=== PATIENT | female | born 1965 | race Caucasian/White ===

== ENCOUNTER 2025-03-17 10:30 | Outpatient (AMB) | payer OTHER, SELFPAY ==
--- OUTSIDE RECORDS SUMMARY | 2015-12-25 23:00 | XMS_ITS | Encounter Summary ---
Author Organization [facility] Address [address] [facility] [address] [place] [address] Phone Care Team Providers Care Hall Monitor Name Role Phone Umberto Goodwin MD Primary Care Provider + Reason for Visit * MRI/CAT Scan - Closed Specialty Diagnoses / Procedures Referred By Curt olivas Referred To Contact Procedures MRI Brain Outside (No Interpretation) Axel Ross MD [address] [place] [address] [address] [address] Phone: tel: fax: mailto:[email or web address] Referral ID Status Reason Start Date Expiration Date Visits Re quested Visits Authorized [id number] Closed 02/01/2016 01/31/2017 1 1 Encounter Details Date Type Department Care Team (Late st Contact Info) Description 12/26/2015 Hospital Encounter [facility] General Imaging [address] [place] [address] Axel Ross MD [address] [place] [address] [address] [address] [email or web address] Social History Tobacco Use Types Packs/Day Years Used Date Smoking Tobacco: Never Assessed Child or Family Care Answer Date Record ed Do you have problems with on e of the following making it difficult for you to work, study, or receive health care? No 08/15/2024 Education Answer Date Recorded Are you interested in help w ith more adult education (for example, completing high school, GED, job training, learning the [place] language, technical skills, or developing parenting skills)? No 08/15/2024 Are you concerned about learning? Not on file 08/15/2024 No 08/15/2024 Yes 08/15/2024 Food Answer Date Recorded Within the past 6 months we worried whether our food would run out before we got money to buy more. Never True 08/15/2024 Within the past 6 months the food we bought just didn't last and we didn't have enough money to get more. Never True Residential Stability Answer Date Recor ded What is your housing situation today? I have vivi sing 08/15/2024 How many times have you move d in the past 12 months? Zero (I did not move) 08/15/2024 Paying for Meds Answer Date Recorded Do you have trouble paying for medicines? No 08/15/2024 Paying Utility Bills Answer Date Record ed Do you have trouble paying your heating or elect ricity bill? No 08/15/2024 Transportation Answer Date Recorded Has the lack of transportati on kept you from medical appointments or from getting medications? No 08/15/2024 Digital Access Answer Date Recorded No 08/15/2024 Yes 08/15/2024 Do you have reliable internet access at home? Ye s 08/15/2024 Do you have a device (e.g., phone, tablet, computer) with a working camera? Yes 08/15/2024 Comments Unknown Sex and Gender Information Value Date Recorded Sex Assigned at Female 05/01/2022 3:51 PM EST Legal Sex Female 9:20 AM EST Gender Identity Female 05/01/2022 3:51 PM EST Sexual Orientation Straight 05/01/2022 3: 51 PM EST documented as of this encounter Plan of Treatment Not on file documented as of this encounter Procedures Procedure Name Priority Date/Time Associated Diagnosis Comments MRI BRAIN OUTSIDE (NO INTERPRETATION) Routine 12/26/2015 12:00 AM EDT documented in this encounter Results * MRI Brain Outside (No Interpretation) (12/26/2015 12:00 AM EDT) Narrative [facility] - 02/01/2016 3:16 PM EDT This study is for PACS storage only and not for interpretation. Procedure Note SYSTEMGENERATED, DOCUMENTATION - 02/01/2016 This study is for PACS storage only and not for interpretation. Axel Ross MD IMG OUTSIDE IMAGING W/OUT INT ERPRETATION Final Result [facility] documented in this encounter Visit Diagnoses Not on filedocumented in this encounter Care Teams Hall Monitor Relationship Specialty Start Date End Date Umberto Goodwin MD [address] [place] [address] PCP - General Internal Medicine 04/06/15 documented as of this encounter Additional Source Comments The information contained in this document represents components of the legal health record. It is not the complete legal health record.[facility]
--- NOTE | 2025-03-17 10:39 | MHC.PC.OV ---
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 Allergies amoxicillin Adverse Reaction (Severe, Verified 03/17/25 10:40) yeast infection Penicillins Adverse Reaction (Severe, Verified 03/17/25 10:40) yeast infection nuts Allergy (Unknown, Uncoded 03/17/25 10:29) tongue/mouth swelling Tobacco use date assessed: 03/17/25 Dental Screening Dental Screen Date: 03/17/25 Did you have a dental visit in the last 12 months?: Yes Did you have a dental problem in the last 6 months where you did not have access to dental care?: No Was dental information given to patient?: Patient has dentist HPI 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 She is transferring from [facility]. She has a significant past medical history family history of breast cancer, osteopenia and a meningioma CV: Blood pressure today in the office is 108/76. Neuro: [facility], Dr. Ross, is following her meningioma upper right temporal lobe until it grows. Derm: follows with [facility] for routine skin checks Tire Builder Operator: Dr. Mueller, up-to-date Mammo: Up-to-date, follows with [facility] for mammograms and MRIs Colonoscopy: due in 2028- it was 10 year plan Bone density: 2024- osteopenia She eats healthy, exercises regularly and has started weightlifting. 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 1. Little interest or pleasure in doing things: not at all 2. Feeling down, depressed, or hopeless: not at all 3. Trouble falling or staying asleep, or sleeping too much: several days 4. Feeling tired or having little energy: not at all 5. Poor appetite or overeating: not at all 6. Feeling bad about yourself - or that you are a failure or have let yourself or your family down: not at all 7. Trouble concentrating on things, such as reading the newspaper or watching television: not at all 8. Moving or speaking so slowly that other people could have noticed. Or the opposite - being so fidgety or restless that you have been moving around a lot more than usual: not at all 9. Thoughts that you would be better off or of hurting yourself in some way: not at all Total score: 1 Depression Screening Interpretation: Negative Depression Screening Done: Yes 07435 - PHQ-9 Billing: Yes Source: Developed by Drs. Scar Elmore, Trina Blankenship, Yefri Kwok and colleagues, with an educational marisa from [employer]. Thrive Questionnaire Date Thrive assessed: 03/11/25 I am a: Patient What is your living situation today?: I have a steady place to live Within the past 12 months, did the food you bought not last and you didn't have the money to get more?: Never true Within the past 12 months, did you worry whether your food would run out before you got money to buy more?: Never true Do you have trouble paying for medicines?: No Do you have trouble getting transportation to medical appointments?: No Do you have trouble paying your heating and electricity bill?: No Do you have trouble taking care of your child, family member or friend?: No Do you have trouble with day-to-day activities such as bathing, preparing meals, shopping, managing finances, etc.?: No Are you currently unemployed and looking for a job?: No Are you interested in more education?: No Please select the resources that you would like help with: None Currently or been in a relationship where the following occur: No concerns reported THRIVE Score: 0 Physical exam (Primary Care) Vital Signs: Last Vital Signs Temp 97.9 F 03/17/25 10:43 Pulse 88 03/17/25 10:43 Resp 14 03/17/25 10:43 BP 108/76 03/17/25 10:43 Pulse Ox 97 03/17/25 10:43 Oxygen Delivery Method Room Air 03/17/25 10:43 BMI result Body Mass Index 21.7 Tobacco/Smoking Status: Tobacco use Status Tobacco use date assessed 03/17/25 03/17/25 10:47 Patient Tobacco Use Status Never used Tobacco 03/17/25 10:47 e-Cigarette/Vaping Use Never Used 03/17/25 10:47 PHQ-9: PHQ-9 Score PHQ-9: Total score 1 03/17/25 10:47 Depression Screening Interpretation: Negative Thrive Assessment: Date of Thrive Assessment Date Thrive assessed 03/11/25 03/17/25 10:47 Currently or been in a relationship where the following occur: No concerns reported Const Orientation/consciousness: patient oriented x3 HENMT Ears: hearing grossly normal bilaterally General nose exam: No nasal polyps present Face and sinus: Yes sinuses nontender Mouth: Normal oral and palatal mucosa present Eyes Pupils: Equal, round and reactive pupils present EOM: EOMs intact bilaterally Neck Neck: Yes full ROM and Yes no lymphadenopathy Thyroid: Thyroid normal Lymphatic: no lymphadenopathy noted Chest Chest palpation & inspection: normal inspection of the chest Resp Auscultation: clear to auscultation bilaterally Cardio Rate: regular rate Rhythm: regular rhythm Heart sounds: S1 normal heart sound present and S2 normal heart sound present Peripheral pulses: Peripheral pulses 2+ throughout GI Other: Soft, nontender Inspection: Yes normal to inspection Palpation (GI): Soft to palpation and Other GI palpation findings present (nontender, no cva tenderness) Auscultation: normoactive bowel sounds Rectal Exam - Female: deferred General: Yes no CVA tenderness Back/Spine/Pelvis Other: Nontender Back: no CVA tenderness Skin General skin exam: no rashes or lesions noted Neuro General: patient oriented x3, gait normal and no focal motor deficits Cranial nerves: Yes Equal, round and reactive pupils present Motor exam (neuro): 5/5 motor strength present throughout Sensory Exam: double simultaneous stimulation for sensation normal Coordination: [id number] test normal and Romberg test negative Extrem General: Yes normal to inspection and Yes full ROM Psych Affect: normal affect Attitude: cooperative Thought process: Normal thought process present Thought content: Normal thought content present Insight: Good insight present (Psych) Judgement: Good judgement present (Psych) Coding Level of Care Code New Pt Prev Care 40-64y(69428) Diagnoses Routine general health check-up of defined subpopulation Z00.8 Osteopenia M85.80 At high risk for breast cancer Z91.89 Additional Codes PHQ-9 - 48730 - PHQ-9 Billing: Yes ([id number]) Assessment & Plan Assessment & Plan (1) Routine general health check-up of defined subpopulation: Code(s): Z00.8 - Encounter for other general examination Plan: hm reviewed vaccines reviewed/recommended. will go to pharmacy labs ordered (2) Osteopenia: Code(s): M85.80 - Other specified disorders of bone density and structure, unspecified site Category: Medical Plan: We will check vitamin-D Encouraged her to continue with weightlifting (3) At high risk for breast cancer: Code(s): Z91.89 - Other specified personal risk factors, not elsewhere classified Category: Medical Plan: Continue follow up with breast center and OBGYN Orders: Orders Complete Blood Count Auto Diff Today M85.80 - Other specified disorders of bone density and structure, unspecified site, Z80.3 - Family history of malignant neoplasm of breast, Z91.89 - Other specified personal risk factors, not elsewhere classified Comprehensive [place]. Panel Fast Today M85.80 - Other specified disorders of bone density and structure, unspecified site, Z80.3 - Family history of malignant neoplasm of breast, Z91.89 - Other specified personal risk factors, not elsewhere classified Lipid Panel Today M85.80 - Other specified disorders of bone density and structure, unspecified site, Z80.3 - Family history of malignant neoplasm of breast, Z91.89 - Other specified personal risk factors, not elsewhere classified TSH reflex Free T4 Today M85.80 - Other specified disorders of bone density and structure, unspecified site, Z80.3 - Family history of malignant neoplasm of breast, Z91.89 - Other specified personal risk factors, not elsewhere classified UA CC w/rflx Micro + Cult Today M85.80 - Other specified disorders of bone density and structure, unspecified site, R30.0 - Dysuria, Z80.3 - Family history of malignant neoplasm of breast, Z91.89 - Other specified personal risk factors, not elsewhere classified Magnesium Today M85.80 - Other specified disorders of bone density and structure, unspecified site, Z80.3 - Family history of malignant neoplasm of breast, Z91.89 - Other specified personal risk factors, not elsewhere classified Vitamin B12 and Folate Today M85.80 - Other specified disorders of bone density and structure, unspecified site, Z80.3 - Family history of malignant neoplasm of breast, Z91.89 - Other specified personal risk factors, not elsewhere classified Vitamin D 25-OH Total Today M85.80 - Other specified disorders of bone density and structure, unspecified site, Z80.3 - Family history of malignant neoplasm of breast, Z91.89 - Other specified personal risk factors, not elsewhere classified Patient Instructions: tdap shingles vaccine
[2025-03-17 10:43] VITALS: BP 108/76; PULSE 88; RESP 14; TEMP 36.6; O2SAT 97; BMI 21.7
--- OUTSIDE RECORDS SUMMARY | 2025-03-17 12:58 | XMS_ITS | Encounter Summary ---
Author Organization [facility] Address [address] [place] [address] Phone Care Team Providers Care Line Tester Name Role Phone Umberto Goodwin MD Primary Care Provider + Encounter Details Date Type Department Care Team ([facility] st Contact Info) Description 12/31/2016 Procedure Pass [facility] Imaging [address] [place] [address] Social History Tobacco Use Types Packs/Day Years Used Date Smoking Tobacco: Never Assessed Comments Unknown Sex and Gender Information Value Date Recorded Sex Assigned at Female 05/01/2022 3:51 PM EST Legal Sex Female 9:20 AM EST Gender Identity Female 05/01/2022 3:51 PM EST Sexual Orientation Straight 05/01/2022 3: 51 PM EST documented as of this encounter Plan of Treatment Not on file documented as of this encounter Visit Diagnoses Not on filedocumented in this encounter Care Teams Line Tester Relationship Specialty Start Date End Date Umberto Goodwin MD [address] [place] [address] PCP - General Internal Medicine 04/06/15 documented as of this encounter Additional Source Comments The information contained in this document represents components of the legal health record. It is not the complete legal health record.[facility]
--- OUTSIDE RECORDS SUMMARY | 2025-03-17 12:58 | XMS_ITS | Clinical Summary ---
Author Organization [facility] Address [address] [place] [address] Phone Care Team Providers Care Die Filer Name Role Phone Umberto Goodwin MD Primary Care Provider + Social History Tobacco Use Types Packs/Day Years [...] high school, GED, job training, learning the O[place]i language, technical skills, or developing parenting skills)? [...] your housing situation today? I have vivi lagos 08/15/2024 How many times have you move [...] Orientation Straight 05/01/2022 3: 51 PM EST Last Filed Vital Signs Vital Sign Reading Time Taken Comments Blood Pressure 116/77 08/14/2022 12:50 PM EDT Pulse 99 08/14/2022 12:50 PM EDT Temperature 37.2 C (99 F) 08/14/2022 12:50 PM EDT Respiratory Rate 16 08/14/2022 12:50 PM EDT Oxygen Saturation 97% 08/14/2022 12:50 PM EDT Inhaled Oxygen Concentration - - Weight 53.1 kg (117 lb) 08/14/2022 12:50 PM EDT Height - - Body Mass Index - - Plan of Treatment Health Maintenance Due Date Last Done Comments LIPID PANEL 1965 DEPRESSION SCREENING 1977 SMOKING Hx and SMOKELESS TOBACCO SCREENING 1978 HEPATITIS C SCREENING 06/18/1983 HIV ONE-TIME SCREENING (18-6 5 YEARS) 06/18/1983 PAP SMEAR 1986 MAMMOGRAM 2005 COLOGUARD 2010 COLONOSCOPY 2010 COLORECTAL CANCER SCREENING 2010 FIT TEST 2010 FOBT 2010 SIGMOIDOSCOPY 2010 VIRTUAL COLONOSCOPY 2010 PNEUMOCOCCAL VACCINES (50+ years) (1 of 1 - PCV) 06/18/2015 ZOSTER VACCINES (1 of 2) 06/18/2015 INFLUENZA VACCINE (#1) 2024 01/27/2018 COVID-19 VACCINE (1 - 2024-2 6 season) 2024 Adult Td,Tdap Booster 10/08/2028 10/08/2018 , 10/08/2018 RSV VACCINE (1 - 1-dose 75+ series) 2040 HEPATITIS A VACCINES Aged Out No long er eligible based on patient's age to complete this topic HIB VACCINES Aged Out No longer eligi ble based on patient's age to complete this topic MENINGOCOCCAL VACCINES (ACWY) Aged Out No longer eligible based on patient's age to complete this topic MENINGOCOCCAL VACCINES (B) Aged Out N o longer eligible based on patient's age to complete this topic Medical Devices Not on file Insurance S S S S S S S S S Care Teams Die Filer Relationship Specialty Start Date End Date Umberto Goodwin MD [address] [address] PCP - General Internal Medicine 04/06/15 Additional Source Comments The information contained in this document represents components of the legal health record. It is not the complete legal health record.[facility]
--- OUTSIDE RECORDS SUMMARY | 2025-03-17 12:58 | XMS_ITS | Encounter Summary ---
Author Organization [facility] Address [address] [place] [address] Phone Care Team Providers Care Sr Technical Sales Consultant Name Role Phone Umberto Goowdin MD Primary Care Provider + Encounter Details Date Type Department Care Team ([facility] st Contact Info) Description 01/02/2018 Procedure Pass [facility] Imaging [address] [place] [address] Social History Tobacco Use Types Packs/Day Years [...] on filedocumented in this encounter Care Teams Sr Technical Sales Consultant Relationship Specialty Start Date End Date Umberto Goodwin MD [address] [place] [address] PCP - General Internal Medicine 04/06/15 documented as of this encounter Additional Source Comments The information contained in this document represents components of the legal health record. It is not the complete legal health record.[facility]
--- OUTSIDE RECORDS SUMMARY | 2025-03-17 12:58 | XMS_ITS ---
Author Name [facility] Organization Unknown Results Test Name/Text Value Interpretation Date Range Source LAB AP MICROSCOPIC DESCRIPTION Sections reveal a mucosal nodule composed chiefly of dense fibrous connective tissue. The surface epithelium is hyperplastic and hyperkeratotic. Heat coagulation tissue distortion consistent with laser is observed. 02/09/2025 [facility]
--- OUTSIDE RECORDS SUMMARY | 2025-03-17 12:58 | XMS_ITS | Encounter Summary ---
Author Organization [facility] Address [address] [facility] [address] [place] [address] Phone Care Team Providers Care Checker Name Role Phone Umberto Goodwin MD Primary Care Provider + Encounter Details Date Type Department Care Team ([facility] st Contact Info) Description 02/19/2021 Transcribe Orders [facility] [address] [place] [address] Axel Ross MD [address] [place] [address] [address] [place] [address] [email or web address] Social History Tobacco Use Types Packs/Day Years [...] on filedocumented in this encounter Care Teams Checker Relationship Specialty Start Date End Date Umberto Goodwin MD [address] [address] PCP - General Internal Medicine 04/06/15 documented as of this encounter Additional Source Comments The information contained in this document represents components of the legal health record. It is not the complete legal health record.[facility]
--- OUTSIDE RECORDS SUMMARY | 2025-03-17 12:58 | XMS_ITS | Encounter Summary ---
Author Organization [facility] Address [address] [place] [address] Phone Care Team Providers Care Canoe Maker Name Role Phone Umberto Goodwin MD Primary Care Provider + Encounter Details Date Type Department Care Team ([facility] st Contact Info) Description 12/30/2018 Procedure Pass [facility] Imaging [address] [place] [address] Social History Tobacco Use Types Packs/Day Years [...] on filedocumented in this encounter Care Teams Canoe Maker Relationship Specialty Start Date End Date Umberto Goodwin MD [address] [place] [address] PCP - General Internal Medicine 04/06/15 documented as of this encounter Additional Source Comments The information contained in this document represents components of the legal health record. It is not the complete legal health record.[facility]
--- OUTSIDE RECORDS SUMMARY | 2025-03-17 12:58 | XMS_ITS | Data Portability ---
Author Organization [place] - [facility] Former[facility], Allergy Address [address] [address] Care Team Providers Care [employer] Duty Manager Name Role Phone EGRTRUDIS GUERRERO Primary Care Provider Assessment Encounter Date Assessment Date Assessment LastModified by Organization Details LastModified Time 02/11/2024 02/11/2024 58-year-old female presents for allergy follow-up. She has had significant improvement in her allergy symptoms since starting immunotherapy in 2015. We discussed discontinuing immunotherapy which patient would like to proceed with. She will follow-up in 8 months for reevaluation. If symptoms recur, we may consider allergy testing. Patient agrees with the plan and all questions were answered. [email or web address] Not available 02/11/2024 11:08:38 10/08/2024 10/08/2024 59-year-old female presents for allergy follow-up. She has had significant improvement in her allergy symptoms since starting immunotherapy in 2015. She may take Mary Ellen-D as needed for allergy flare up. She may follow up as needed. If symptoms recur or worsen, we may consider repeat allergy testing. Patient agrees with the plan and all questions were answered. Patient with right sided lymphadenopathy. Exam today demonstrates small pea-sized freely movable nontender lymph node under the angle of the right mandible. We will continue to observe. She will follow-up if the lymph node increases in size, becomes painful, or if she has any unexplained weight loss, fevers, night sweats or chills. [email or web address] Not available 10/08/2024 11:01:24 Plan of Treatment Reminders Order Date Submit Date Provider Last Modified By Organization Details Last Modified Time Details Appointments None record ed. Lab None record ed. Referral None record ed. Procedures None record ed. Surgeries None record ed. Imaging None record ed. Medication Orders None record ed. Patient TargetsNo targets recorded. Patient InstructionsNo instructions recorded. Reason for Referral None Reported. Problems Name Problem SNOMED Code Status Onset Date Resolution Date Notes Provider Name and Address Organization Details Recorded Time Headache 06603783 Active 2014 Headache; Note: Date Diagnosed: 03/16/2015 3:13 PM (R51) Not Available [facility] 4 02:49:23 Chronic maxillary sinusitis 43908231 Active 2014 Chronic maxillary sinusitis; Note: Date Diagnosed: 03/16/2015 3:12 PM (J32.0) Not Available [facility] 4 02:49:23 Chronic ethmoidal sinusitis 08597883 Active 2014 Chronic ethmoidal sinusitis; Note: Date Diagnosed: 03/16/2015 3:12 PM (J32.2) Not Available [facility] 4 02:49:27 Allergic rhinitis 29405068 Active 2015 Allergic Rhinitis; Note: Date Diagnosed: 09/01/2015 4:48 PM (477.9) Perennia l allergic rhinitis; Note: Date Diagnosed: 07/11/2015 3:26 PM (J30.89) ; Start Date : 07/11/2015 Not Available [facility] 4 02:49:26 Allergic rhinitis caused by pollen 32976609 Active 2022 Allergic rhinitis due to pollen; Note: Date Diagnosed: 11/05/2022 6:45 PM (J30.1) Allergic rhinitis due to pollen; Note: Date Diagnosed: 04/04/2022 11:38 AM (J30.1) ; Start Date : 04/04/2022 Allergic rhinitis due to pollen; Note: Date Diagnosed: 09/25/2021 12:05 PM (J30.1) ; Start Date : 09/25/2021 Allergic rhinitis due to pollen; Note: Date Diagnosed: 02/06/2021 10:25 AM (J30.1) ; Start Date : 02/06/2021 Allergic rhinitis due to pollen; Note: Date Diagnosed: 02/02/2019 9:40 AM (J30.1) ; Start Date : 02/02/2019 Allergic rhinitis due to pollen; Note: Date Diagnosed: 01/27/2018 9:17 AM (J30.1) ; Start Date : 01/27/2018 Allergic rhinitis due to pollen; Note: Date Diagnosed: 02/27/2016 4:19 PM (J30.1) ; Start Date : 02/27/2016 Not Available [facility] 4 02:49:27 Acute pharyngit is 578267576 Active 2022 Acute pharyngiti s, unspecifie d; Note: Date Diagnosed: 11/05/2022 11:19 AM (J02.9) Not Available [facility] 4 02:49:26 Lymphaden opathy 44054030 Active 2024 CLEO SERRA PA-C [address] [place] [address], [place], [address] , [facility] - [facility] 5 10:59:50 Problem Notes None recorded. Medical Equipment None Reported. Allergies No known drug allergies Medications Name Sig Start Date Stop Date Status Note LastModified by Organization Details LastModified Time amoxicill in 500 mg capsule TAKE 1 CAPSULE BY MOUTH EVERY 6 HOURS UNTIL FINISHED 10/08 completed Not Available Not Available Not Available desonide 0.05 % topical cream APPLY SPARINGL Y TWICE DAILY. active Not Available Not Available No t Available clindamyc in HCl 300 mg capsule 1 capsule by mouth 10/08 completed Medicati on ID: [id number] D uration Value: 7 Prescri bed By Name: Fab Zeng nd Name: clindamy phylicia HCl Send Method: E-Prescr ibed Sub s Allowed: subs OK Medic ationGen ericName : clindamy phylicia HCl Not Available Not Available Not Available ibuprofen 800 mg tablet TAKE 1 TABLET BY MOUTH EVERY 8 HOURS 10/08 completed Not Available Not Available Not Available Lidocaine Viscous 2 % mucosal solution GARGLE IN MOUTH WITH 10 ML EVERY 3-4 HOURS GARGLE, THEN CAN SPIT OUT OR SWALLOW 10/08 completed Not Available Not Available Not Available spironola ctone 100 mg tablet TAKE 1 TABLET BY MOUTH EVERY DAY IN THE MORNING active Not Available Not Available No t Available rizatript an 10 mg tablet PLEASE SEE ATTACHED FOR DETAILED DIRECTIO NS 10/08 completed Not Available Not Available Not Available Diflucan 150 mg tablet 02/06 completed Medicati on ID: [id number] P rescribe d By Name: BRANDON Davis nd Name: Ap Send Method: E-Prescr ibed Sub s Allowed: subs OK Speci al Instruct ion: take one tab po once Med icationG enericNa me: Diflucan Not Available Not Available Not Available tretinoin 0.05 % topical cream APPLY A PEA SIZED AMOUNT AT BEDTIME TOLERATE D FOR ACNE active Not Available Not Available No t Available clindamyc in 1 %-benzoyl peroxide 5 % topical gel APPLY EVERY MORNING TO FACE FOR ACNE. active Not Available Not Available No t Available amoxicill in 500 mg tablet TAKE 2 TO START, THEN TAKE 1 TABLET 3 TIMES A DAY UNTIL FINISHED 10/08 completed Not Available Not Available Not Available alprazola m 0.5 mg tablet TAKE 1 TABLET BY MOUTH NIGHT BEFORE PROCEDUR E, THEN 2 TABS 1 HOUR PRE-OP 10/08 completed Not Available Not Available Not Available rizatript an 10 mg disintegr ating tablet TAKE 1 TAB AT ONSET OF HEADACHE . MAY REPEAT IN 2HRS NEEDED (MAX 3TABS/24 HRS) active Not Available Not Available No t Available doxycycli ne monohydra te 100 mg capsule TAKE 1 CAPSULE BY MOUTH TWICE A DAY WITH FOOD UNTIL BETTER 10/08 completed Not Available Not Available Not Available pantopraz ole 40 mg tablet,de layed release TAKE 1 TABLET BY MOUTH EVERY DAY 10/08 completed Not Available Not Available Not Available Mary Ellen-D 12 Hour 60 mg-120 mg tablet,ex tended release 02/06 completed Medicati on ID: [id number] B rand Name: Mary Ellen- D 12 Hour Sen d Method: E-Prescr ibed Sub s Allowed: subs OK Medic ationGen ericName : Mary Ellen- D 12 Hour Not Available Not Available Not Available azelastin e 137 mcg (0.1 %) nasal spray 2 spray into both nostrils 02/06 completed Medicati on ID: [id number] P rescribe d By Name: BRANDON Davis nd Name: azelasti ne Send Method: E-Prescr ibed Sub s Allowed: subs OK Medic ationGen ericName : azelasti ne Not Available Not Available Not Available epinephri ne 0.3 mg/0.3 mL injection , auto-inje ctor INJECT 1 PEN INJECTOR INTRAMUS CULARLY SINGLE DOSE active Not Available Not Available No t Available methylpre dnisolone 4 mg tablets in a dose pack TAKE 6 TABLETS ON DAY 1 DIRECTED ON PACKAGE AND DECREASE BY 1 TAB EACH DAY FOR A TOTAL OF 6 DAYS 10/08 completed Not Available Not Available Not Available albuterol sulfate HFA 90 mcg/actua tion aerosol inhaler active Medicati on ID: [id number] B rand Name: albutero l sulfate Send Method: E-Prescr ibed Sub s Allowed: subs OK Medic ationGen ericName : albutero l sulfate Not Available Not Available Not Available fluticaso ne propionat e 50 mcg/actua tion nasal spray,brett pension active Medicati on ID: [id number] B rand Name: fluticas one propiona te Send Method: E-Prescr ibed Sub s Allowed: subs OK Medic ationGen ericName : fluticas one propiona te Not Available Not Available Not Available dicyclomi ne 10 mg capsule TAKE 1 CAPSULE BY MOUTH THREE TIMES A DAY NEEDED FOR ABDOMINA L PAIN active Not Available Not Available No t Available ipratropi um bromide 21 mcg (0.03 %) nasal spray TAKE 2 SPRAYS IN EACH NOSTRIL 2 TIMES PER DAY FOR 14 DAYS active Not Available Not Available No t Available Tri-Sprin dyllan (28) 0.18 mg(7)/0.2 15 mg(7)/0.2 5 mg(7)-0.0 35 mg tablet 02/06 completed Medicati on ID: [id number] D uration Value: 84 Brand Name: Tri-Spri ntec (28) Sen d Method: E-Prescr ibed Sub s Allowed: subs OK Medic ationGen ericName : Tri-Spri ntec (28) Not Available Not Available Not Available chlorhexi dine gluconate 0.12 % mouthwash RINSE AND SPIT WITH 1/2 CAPFUL TWICE A DAY active Not Available Not Available No t Available bimatopro st 0.03 % drops with applicato r, eyelash base PLEASE SEE ATTACHED FOR DETAILED DIRECTIO NS active Not Available Not Available No t Available butalbita l-acetami nophen-ca ffeine 50 mg-300 mg-40 mg capsule 02/06 completed Medicati on ID: [id number] D uration Value: 6 Brand Name: butalbit al-aceta minophen -caff Se nd Method: E-Prescr ibed Sub s Allowed: subs OK Medic ationGen ericName : butalbit al-aceta minophen -caff Not Available Not Available Not Available Vitals Date Recorded Body height Body mass index (BMI) Body weight Provider Name and Address Organization Details Last Updated DateTime 10/08/2024 157.48 cm 20.7 kg/m2 30930.94 g Celina Briones [facility] 10/08/2024 10:25:26 Date Recorded Body height Body mass index (BMI) Body weight Provider Name and Address Organization Details Last Updated DateTime 02/11/2024 157.48 cm 20.7 kg/m2 74314.94 g Tatyana Cintron [facility] 02/11/2024 10:49:23 Social History None recorded. Functional Status None recorded. Mental Status None recorded. Family History Nothing Reported. Medical History No medical history recorded. Gynecological HistoryNo gynecological history recorded. Obstetrics History GPAL:G 0 P 0 0 0 0 Past Encounters Encounter ID Performer Location Encounter Start Date Encounter Closed Date Diagnosis/Indication Diagnosis SNOMED-CT Code Diagnosis ICD10 Code Diagnosis IMO Codes Diagnosis Note [id number] CLEO SERRA PA-C [facility] [address] [address] 02/11/2024 10:35:10 02/11/2024 11:05:38 Allergic rhinitis 57464495 J30.89 [id number] CLEO SERRA PA-C [facility] [address] [address] 10/08/2024 10:19:52 10/08/2024 10:38:51 Allergic rhinitis 96852943 J30.89 Lymphadenopathy 22154669 R59.9 875959 Health Concerns Section Related Observation LastModified by Organization Detai ls LastModified Time None Recorded Concern Status LastModified by Organization Details LastModified Time None Recorded Advance Directives Directive None Recorded Payers Insurance Date Sequence Insurance Name Policy Number Policy Feliz Covered Member ID Feliz Member ID Guarantor Name 10/13/2024 1 [facility] [id number] Nicole Magallon [id number] Nicole Magallon Notes Date Note Type Note Provider Name and Address Organization Details Recorded Time 02/11/2024 text/html ROS as noted in the HPI 58-year-old female presents for allergy follow-up. Initiated SLIT in August 2015 with significant improvement in allergy symptoms. She has not taken any antihistamines or nasal sprays consistently since 2018 for her allergies. Occasionally will use Flonase and Mary Ellen-D for upper respiratory infections. ANDREA TADEO MD [address] [place] [address], [phone], [facility] 02/11/2024 12:43:30 10/08/2024 text/html ROS as noted in the HPI 59-year-old female presents for follow up of allergic rhinitis. Initiated SLIT in August 2015 with significant improvement in allergy symptoms and discontinued it back in January 2024. She had an allergy flare up that was mild and responded well to Mary Ellen-D. She is very pleased with her response to immunotherapy. Also notes right lymph node that fluctuates in size. It is not painful and there is no overlying skin changes. Denies fever, night sweats, or weight loss. GAURAV PATEL MD [address] [place] [address],[address], [phone], [facility] 10/09/2024 11:30:27 OBGyn Episode No OBEpisode recorded.
--- OUTSIDE RECORDS SUMMARY | 2025-03-17 12:58 | XMS_ITS | Data Portability ---
Author Organization MD - [facility] [address] [place] [address] [place] [address] Assessment No assessment recorded. Plan of Treatment Reminders Order Date Submit Date Provider Last Modified By Organization Details Last Modified Time Details Appointments None recorded. Lab rapid strep group A, throat 2022 023 [email or web address] In-Office Order, Internal Use Only DO Not Attach Compendium DO Not Attach Compendium, Do Not Delete/merge, [id number] 3 09:16:55 rapid SARS CoV 2 Ag, QL IA, respiratory specimen 2022 023 [email or web address] In-Office Order, Internal Use Only DO Not Attach Compendium DO Not Attach Compendium, Do Not Delete/merge, [id number] 3 09:46:37 rapid flu (A+B) 2022 023 [email or web address] In-Office Order, Internal Use Only DO Not Attach Compendium DO Not Attach Compendium, Do Not Delete/merge, [id number] 3 09:46:37 Referral None recorded. Procedures None recorded. Surgeries None recorded. Imaging None recorded. Medication Orders amoxicillin 500 mg capsule 2022 023 [id number], [address], [place], [address], 3 09:14:33 Medrol (Robles) 4 mg tablets in a dose pack 2022 023 [employer] [id number], [address], [place], [address], 09:14:33 benzonatate 200 mg capsule 2022 023 [id number], [address], [place], [address], 09:46:40 Patient TargetsNo targets recorded. Patient Instructions Encounter Date Encounter Id Patient Instructions Last Modified By Organization Details Last Modified Time 10/07/2022 [id number] cough: care instructions [email or web address] Not available 10/07/2022 09:46:37 10/09/2022 [id number] sore throat: car e instructions [email or web address] Not available 10/09/2022 09:14:33 Reason for Referral None Reported. Results Created Date Observation Date Name Description Value Unit Range Abnormal Flag Note LastModifiedBy Organization Detail LastModifiedTime 10/08/1910/07/2022 rapid SARS CoV 2 Ag, QL IA, respi rator y speci men Is this the patient's first test for COVID-19? No Not Available In-Off ice Order Internal Use Only DO Not Attach Compendium DO Not Attach Compendium, Do Not Delete/merge, [id number] 10/07/2022 09:34:27 10/08/19 23 10/07/2022 rapid SARS CoV 2 Ag, QL IA, respi rator y speci men Is the patient symptomatic of COVID-19 per the CDC Guidelines? Yes Not Available In-O ffice Order Internal Use Only DO Not Attach Compendium DO Not Attach Compendium, Do Not Delete/merge, [id number] 10/07/2022 09:34:27 10/08/1910/07/2022 rapid SARS CoV 2 Ag, QL IA, respi rator y speci men If yes, date of onset symptoms (mm/dd/yy): Not Available In-Office Order Internal Use Only DO Not Attach Compendium DO Not Attach Compendium, Do Not Delete/merge, [id number] 10/07/2022 09:34:27 10/08/19 23 10/07/2022 rapid SARS CoV 2 Ag, QL IA, respi rator y speci men Is the patient employed in healthcare? No Not Available In-O ffice Order Internal Use Only DO Not Attach Compendium DO Not Attach Compendium, Do Not Delete/merge, 10/07/2022 09:34:27 10/08/1910/07/2022 rapid SARS CoV 2 Ag, QL IA, respi rator y speci men Is the patient hospitalized ? No Not Available In-Off ice Order Internal Use Only DO Not Attach Compendium DO Not Attach Compendium, Do Not Delete/merge, 10/07/2022 09:34:27 10/08/1910/07/2022 rapid SARS CoV 2 Ag, QL IA, respi rator y speci men Is the patient in the ICU? No Not Available In-Off ice Order Internal Use Only DO Not Attach Compendium DO Not Attach Compendium, Do Not Delete/merge, 10/07/2022 09:34:27 10/08/1910/07/2022 rapid SARS CoV 2 Ag, QL IA, respi rator y speci men Congregate care resident (e.g. [facility], homeless longterm, etc.)? No Not Available In-Off ice Order Internal Use Only DO Not Attach Compendium DO Not Attach Compendium, Do Not Delete/merge, 10/07/2022 09:34:27 10/08/1910/07/2022 rapid SARS CoV 2 Ag, QL IA, respi rator y speci men ? No Not Available In-Offic e Order Internal Use Only DO Not Attach Compendium DO Not Attach Compendium, Do Not Delete/merge, 10/07/2022 09:34:27 10/08/1910/07/2022 rapid SARS CoV 2 Ag, QL IA, respi rator y speci men COVID-19 Result: negati ve Not Available In-Office Order Internal Use Only DO Not Attach Compendium DO Not Attach Compendium, Do Not Delete/merge, 10/07/2022 09:34:27 10/08/1910/07/2022 rapid SARS CoV 2 Ag, QL IA, respi rator y speci men LOT: [id number] Not Available In-Office Order Internal Use Only DO Not Attach Compendium DO Not Attach Compendium, Do Not Delete/merge, 10/07/2022 09:34:27 10/08/19 23 10/07/2022 rapid SARS CoV 2 Ag, QL IA, respi rator y speci men EXP: [id number] Not Available In-Office Order Internal Use Only DO Not Attach Compendium DO Not Attach Compendium, Do Not Delete/merge, 10/07/2022 09:34:27 10/08/19 23 10/07/2022 rapid flu (A+B) Hot Worker HS Not Available In-Of fice Order Internal Use Only DO Not Attach Compendium DO Not Attach Compendium, Do Not Delete/merge, 10/07/2022 09:34:37 10/08/19 23 10/07/2022 rapid flu (A+B) Test Strip Lot Number [id number] Not Available In-Office Order Internal Use Only DO Not Attach Compendium DO Not Attach Compendium, Do Not Delete/merge, 10/07/2022 09:34:37 10/08/1910/07/2022 rapid flu (A+B) Test Strip Expiration Date [id number] Not Available In-Office Order Internal Use Only DO Not Attach Compendium DO Not Attach Compendium, Do Not Delete/merge, 10/07/2022 09:34:37 10/08/19 23 10/07/2022 rapid flu (A+B) Procedural Control Valid Yes Not Available In-Off ice Order Internal Use Only DO Not Attach Compendium DO Not Attach Compendium, Do Not Delete/merge, 10/07/2022 09:34:37 10/08/19 23 10/07/2022 rapid flu (A+B) Result negati ve Not Available In-Office Order Internal Use Only DO Not Attach Compendium DO Not Attach Compendium, Do Not Delete/merge, 10/07/2022 09:34:37 10/10/19 23 10/09/2022 rapid strep group A, throa t Hot Worker quidel Not Available In-Of fice Order Internal Use Only DO Not Attach Compendium DO Not Attach Compendium, Do Not Delete/merge, 10/09/2022 09:07:22 10/10/19 23 10/09/2022 rapid strep group A, throa t Test Strip Lot Number [id number] Not Available In-Of fice Order Internal Use Only DO Not Attach Compendium DO Not Attach Compendium, Do Not Delete/merge, [id number] 10/09/2022 09:07:22 10/10/19 23 10/09/2022 rapid strep group A, throa t Test Strip Expiration Date Not Available In-Office Order Internal Use Only DO Not Attach Compendium DO Not Attach Compendium, Do Not Delete/merge, [id number] 10/09/2022 09:07:22 10/10/19 23 10/09/2022 rapid strep group A, throa t Procedural Control Results Valid Yes Not Available In-Off ice Order Internal Use Only DO Not Attach Compendium DO Not Attach Compendium, Do Not Delete/merge, [id number] 10/09/2022 09:07:22 10/10/19 23 10/09/2022 rapid strep group A, throa t Result positi ve Not Available In-Office Order Internal Use Only DO Not Attach Compendium DO Not Attach Compendium, Do Not Delete/merge, [id number] 10/09/2022 09:07:22 10/10/19 23 10/09/2022 rapid strep group A, throa t Speciment Sent to Lab No Not Available In-O ffice Order Internal Use Only DO Not Attach Compendium DO Not Attach Compendium, Do Not Delete/merge, [id number] 10/09/2022 09:07:22 Result Notes None recorded. Problems Name Problem SNOMED Code Status Onset Date Resolution Date Notes Provider Name and Address Organization Details Recorded Time Cough 55830182 [facility] 023 JERMAINE MCLAUGHLINA, PAINTING MACHINE OPERATOR [address] [place] [address], [phone] , [address] 10/07/2022 09:32:27 Sore throat 069700340 [facility] 023 JERMAINE MCLAUGHLINA, PAINTING MACHINE OPERATOR [address] [place] [address], [phone] , [facility]14 [place] 10/09/2022 09:07:00 Problem Notes None recorded. Medical Equipment None Reported. Allergies Allergen ID Allergen Name Allergen Category Reaction Reaction Severity Criticality Documentation Date Start Date Code Code System Note Provider Name and Address Organization Details Recorded Time 253135 walnut allergeni c extract food Not available Not available Not available 10/07/2022 82382 0 RxNorm Shannan Guzman RN [facility], [address] 3 09:30:58 Medications Name Sig Start Date Stop Date Status Note LastModified by Organization Details LastModified Time amoxicillin 500 mg capsule TAKE 1 CAPSULE BY MOUTH TWICE A DAY WITH MEALS FOR 10 DAYS active Not Available Not Available No t Available doxycycline hyclate 100 mg capsule Take 1 capsule twice a day by oral route. active Not Available Not Available No t Available azithromycin 250 mg tablet TAKE 2 TABLETS BY MOUTH TODAY, THEN TAKE 1 TABLET DAILY FOR 4 DAYS active Not Available Not Available No t Available benzonatate 200 mg capsule TAKE 1 CAPSULE BY MOUTH THREE TIMES A DAY NEEDED FOR 7 DAYS active Not Available Not Available No t Available spironolactone 100 mg tablet Take 1 tablet every day by oral route. active Not Available Not Available No t Available doxycycline monohydrate 100 mg capsule TAKE 1 CAPSULE TWICE A DAY WITH FOOD UNTIL BETTER active Not Available Not Available No t Available pantoprazole 40 mg tablet,delayed release Take 1 tablet every day by oral route. active Not Available Not Available No t Available methylpredniso lone 4 mg tablets in a dose pack TAKE 6 TABLETS ON DAY 1 DIRECTED ON PACKAGE AND DECREASE BY 1 TAB EACH DAY FOR A TOTAL OF 6 DAYS active Not Available Not Available No t Available albuterol sulfate HFA 90 mcg/actuation aerosol inhaler INHALE 2 PUFFS BY MOUTH EVERY 6 HOURS NEEDED FOR WHEEZING FOR UP TO 30 DAYS. active Not Available Not Available No t Available Mucus Relief ER 600 mg tablet, extended release TAKE 1 TO 2 TABLETS 2 TIMES A DAY NEEDED COUGH FOR UP TO 7 DAYS MAX DOSE 2,400MG PER DAY. active Not Available Not Available No t Available Vitals Date Recorded Body weight Body temperature Heart rate Respiratory rate Oxygen saturation Systolic And Diastolic Provider Name and Address Organization Details Last Updated DateTime 3 15674.1 2 g 98.2 [degF] 86 /min 16 /min 100 % 115/79 mm[Hg] Shannan Guzman RN [facility] [place] 3 09:30:39 Date Recorded Body weight Body mass index (BMI) Body height Body temperature Heart rate Oxygen saturation Systolic And Diastolic Provider Name and Address Organization Details Last Updated DateTime 3 01812.0 9 g 20.8 kg/m2 157.48 cm 98.2 [degF] 97 /min 98 % 112/78 mm[Hg] Nanda Benedict [address] 3 08:57:06 Social History Question Answer Notes LastModified by Organizat ion Details LastModified Time Tobacco Smoking Status Never Smoker Shannan Guzman RN null, [address] 10/07/2022 09:33:12 What Is Your Level Of Caffeine Consumption? None [email or web address] Information not available 10/07/2022 Sex: Unknown Functional Status Question Answer Note LastModified by Organizat ion Details LastModified Time What is your level of alcohol consumption? Occasional [email or web address] Information not available 10/07/2022 Mental Status None recorded. Family History Nothing Reported. Medical History Condition Response Coronary Artery Disease N Other N Gout N Atrial Fibrillation N Kidney Stones N Hyperthyroidism N Emphysema N Colonoscopy N Mammograms N Sexually Transmitted Disease N Blood Clots N COPD N Depression N Peripheral Arterial Disease N No past medical history reported N Has Pacemaker N Muscle, Joint, or Bone Problems N Obesity N Hiatal hernia N Arthritis N CABG N Cancer N Stroke N Alcohol abuse N Aortic Valve Disease N Aortic Aneurysm N Arrhythmia N Kidney Disease N DVT/Blood Clots/PE N Anxiety N Ear or Hearing Problems N Migraines N ADD or ADHD N Urinary Problems N Abdominal Pain N Ulcers N Bradycardia N AIDS/HIV N Myocardial Infarction N CVA N Asthma N Allergies N Tricuspid Valve Disease N GERD/Reflux Y Hepatitis N Neuropathy N Pulmonary Embolism N Chicken Pox N Anxiety/Depression N Thyroid Disease N Blood clot/deep vein thrombosis N Hyperkalemia N Hypokalemia N Hypothyroidism N Bipolar N UTI N Diverticulitis/Diverticulosis N Deep Vein Thrombosis N Hearing Loss N Abnormal Pap Smear N Tachycardia N Bladder or Kidney Problems N Dexa Scan N Liver Disease N Dialysis N Tobacco Use N Osteoarthritis N GI Problems N Alzheimers N Anemia N PATIENT DENIES SIGNIFICANT PAST MEDICAL HISTORY N Heart Attack (NM) N Diabetes N Ovarian Cancer N Cardiomyopathy N Blood Transfusions N Seizures/Epilepsy N Dundee Palsy N Heart Murmur N Immunizations N Blood Clot/DVT/Pulmonary Embolism N Congestive Heart Failure (CHF) N Hyperlipidemia N Chronic Pain N Dementia N Abdominal aneurysm N Sleep apnea N Bronchitis N Heart Disease N Hypertension N Osteoporosis N Weight Loss, excessive N Gynecological HistoryNo gynecological history recorded. Obstetrics History GPAL:G 0 P 0 0 0 0 Past Encounters Encounter ID Performer Location Encounter Start Date Encounter Closed Date Diagnosis/Indication Diagnosis SNOMED-CT Code Diagnosis ICD10 Code Diagnosis IMO Codes Diagnosis Note [id number] JERMAINE ANAYA APRN [facility] [address] [place] [address] 10/07/2022 09:04:07 10/07/2022 09:51:55 Cough 53294680 R05.9 Plan today is supportive treatment. I suspect cough is allergy induced. We discussed antihistam alex, Flonase and antitussiv es. Patient is taking Doxycyclin e twice daily for acne prevention from Dermatolog ist, counseled on sun sensitivit y.Encourag ed warm beverages, humidified air, dark honey, fluids, rest, scheduled tylenol 1000mg every 6 hrs for fever or pain.ER precaution s discussed [id number] JERMAINE ANAYA APRN [facility] [address] [place] [address] 10/09/2022 08:32:28 10/09/2022 09:18:49 Sore throat 980846827 J02.9 Rapid strep in office, positive. Patient is taking doxycyclin e prophylact ic for acne, recommende d she stop Doxycyclin e and start amoxicilli n. Follow-up with her PCP when she gets home Plan to start antibiotic and pain management . We also discussed non-pharma cological treatments such as warm fluids with dark honey, salt water gargles, humidified air. Patient should see some improvemen t in 24-48 hrs. Strep throat is very contagious . No kissing, sharing drinks, shaking hands. Use hand math specialist often. Change your toothbrush for risk of contaminat ion. We discussed worsening symptoms such as uncontroll ed pain, increasing pain to throat, ear and jaw, increased swelling, inability to swallow and difficulty swallowing or breathing. Patient understand s if symptoms worsen, it is recommende d to go to ER or call 911. Health Concerns Section Related Observation LastModified by Organization Detai ls LastModified Time None Recorded Concern Status LastModified by Organization Details LastModified Time None Recorded Advance Directives Directive None Recorded Payers Insurance Date Sequence Insurance Name Policy Number Policy Feliz Covered Member ID Feliz Member ID Guarantor Name 11/26/2022 1 [facility] [id number] Nicole Magallon [id number] Nicole Magallon 11/26/[address] [facility] Nicole Magallon [id number] Nicole Magallon Notes Date Note Type Note Provider Name and Address Organization Details Recorded Time 10/07/2022 text/html CoughReported by PatientHPIFor context, patient reportsworse at nightbut reportsnon-smoker. For associated symptoms, patient reportschillsbut reportsno fever,no chest pain,no heartburn,no nausea,no vomiting,no edema,no agitation,no wheezing, andno post nasal drip. For severity, patient reportsmoderate. For duration, patient reportsconstant (mostly @ night). For timing, patient reportssudden. For modifying factors, patient reportsotc medication (nyquil). For quality, (dry, non productive).ROS as noted in the HPI Here on vacation arrived a few days ago. 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 She was seen 2 days ago for cough and sinus congestion, she reports no improvement in symptoms and also developed a sore throat. She continues to feel fatigued, rundown. Denies chest pain wheezing shortness of breath, fever. JERMAINE ANAYA APRN [address] [place], [address], [facility]14 [place] 10/09/2022 09:17:29 OBGyn Episode No OBEpisode recorded.
--- OUTSIDE RECORDS SUMMARY | 2025-03-17 12:58 | XMS_ITS | Patient Health Record ---
Author Organization [facility] Address [address] [place] [address] Support Name Relationship Address Phone DAVID MOE Guarantor Unknown [phone] Reason For Referral No Information Medications Medication SIG (Take, Route, Frequency, Duration) Notes Start Date End Date Status Ortho Tri-Cyclen (28) 0.035 1 ORAL daily ; Duration: -3 Abimael- 09/23/2011 Active Maxalt 10MG ORAL; Duration: -3 Abimael-MJ 07/26/2011 Active Multivitamins 1 ORAL daily; Durati on: -3 Abimael- 09/23/2011 Active Claritin 10 MG 1 ORAL daily; Durati on: -3 Abimael-MJ 09/23/2011 Active Immunizations Vaccine Route Administration Date Status Comme nts Influenza, live, intranasal Intramuscular 09/23/2011 Pendi ng Tdap Intramuscular 09/23/2011 Pending Problems Problem Type SNOMED Code ICD Code Onset Dates Problem Status W/U Status Risk Notes Problem Menstrual migraine (disorder) (14958656) Menstrual migraine, without mention of intractable migraine without mention of status migrainosus (346.40) Active confirmed Major Problem Migraine (disorder) (01333598) Migraine, unspecified without mention of intractable migraine without mention of status migrainosus (346.90) Active confirmed Diag Problem General examination of patient (169653726) Routine general medical examination at health care facility (V70.0) Active confirmed Diag Plan Of Treatment No Information Insurance Providers Payer Name Payer Address Payer Phone Subscriber Number Group Number Insured Name Patient Relationship to Insured Coverage Start Date Coverage End Date [facility] [address] [place] [address] [id number] DAVID MOE Self - patient is the insured
== END 2025-03-17 11:32 | disposition home or self-care (01) ==
LOC: HO.HMCFM 10:31
PROVIDERS: PCP Physician Assistant; Visit Provider Physician Assistant
DX: Z00.8 Encounter for other general examination (principal); M85.80 Other specified disorders of bone density and structure, unspecified site; Z91.89 Other specified personal risk factors, not elsewhere classified; Z80.3 Family history of malignant neoplasm of breast

== ENCOUNTER → 2025-03-17 10:30 | Outpatient (BNVA) | payer OTHER, SELFPAY | PROVIDERS: Visit Provider Physician Assistant | DX: Z00.8 Encounter for other general examination (principal); M85.80 Other specified disorders of bone density and structure, unspecified site; Z91.89 Other specified personal risk factors, not elsewhere classified | CPT/HCPCS: 96127 ==

== ENCOUNTER 2025-04-12 09:44 | Outpatient (REF) | payer OTHER, SELFPAY ==
--- OUTSIDE RECORDS SUMMARY | 2015-12-25 23:00 | XMS_ITS | Encounter Summary ---
Author Organization [facility] Address [address] [facility] [address] [place] [address] Phone Care Team Providers Care Intensive Care Medicine Specialist Name Role Phone Umberto Goodwin MD Primary Care Provider + Reason for Visit * MRI/CAT Scan - Closed Specialty Diagnoses / Procedures Referred By Curt olivas Referred To Contact Procedures MRI Brain Outside (No Interpretation) Axel Ross MD [address] [place] [address] [address] Phone: tel: fax: mailto:[email or web address] Referral ID Status Reason Start Date Expiration Date Visits Re quested Visits Authorized [id number] Closed 02/01/2016 01/31/2017 1 1 Encounter Details Date Type Department Care Team (Late st Contact Info) Description 12/26/2015 Hospital Encounter [facility] General Imaging [address] [place] [address] Axel Ross MD [address] [place] [address] [address] [email or web address] Social History Tobacco Use Types Packs/Day [...] high school, GED, job training, learning the Gabonese language, technical skills, or developing parenting skills)? [...] (No Interpretation) (12/26/2015 12:00 AM EDT) Narrative [facility] [place] - 02/01/2016 3:16 PM EDT This study is for PACS storage only and not for interpretation. Procedure Note SYSTEMGENERATED, DOCUMENTATION - 02/01/2016 This study is for PACS storage only and not for interpretation. Axel Ross MD IMG OUTSIDE IMAGING W/OUT INT ERPRETATION Final Result [facility] documented in this encounter Visit Diagnoses Not on filedocumented in this encounter Care Teams Intensive Care Medicine Specialist Relationship Specialty Start Date End Date Umberto Goodwin MD [address] [place] [address] PCP - General Internal Medicine 04/06/15 documented as of this encounter Additional Source Comments The information contained in this document represents components of the legal health record. It is not the complete legal health record.[facility]
[2025-04-12 11:33] LABS: MANUAL DIFF FLAG NO
[2025-04-12 11:36] LABS: Appearance Urine Clear; Glucose Urine UA Negative (Negative); PH 6.5 (5.0-9.0); Specific Gravity - Urine 1.025 (1.005-1.025)
[2025-04-12 11:37] LABS: Hematocrit 39.1 % (37.0-47.0); Hemoglobin 13.2 g/dl (12.0-16.0); Imm Gran Abs Auto 0.01 X10*3/uL (0.00-0.03); Imm Gran Pct Auto 0.2 % (0.0-0.4); Lymphocytes Absolute Auto 1.9 X10*3/uL (1.2-4.9); Mean Corpuscular HGB Conc 33.8 g/dl (31.0-35.0); Mean Corpuscular Hemoglobin 31.2 pg (27.0-33.0); Mean Corpuscular Volume 92.4 fL (80.0-98.0); NRBC Abs Auto 0.000 X10*3/uL (0.0-0.012); NRBC Pct Auto 0.0 /100WBC (0.0-0.2); Platelet Count 197 X10*3/uL (160-400); Red Blood Count 4.23 X10*6/uL (4.20-5.50); White Blood Count 4.4 X10*3/uL (4.8-10.8)
[2025-04-12 12:20] LABS: Alanine Aminotransferase 20 U/L (0-31); Albumin Level 4.5 g/dL (3.5-5.0); Alkaline Phosphatase 45 U/L (39-117); Anion Gap 11 (12-20); Aspartate Amino Transferase 26 U/L (5-31); Blood Urea Nitrogen 20 mg/dL (9-16); Calcium 9.5 mg/dL (8.4-10.2); Carbon Dioxide 28 mmol/L (22-29); Chloride 104 mmol/L (96-108); Cholesterol 217 mg/dL (<200); Estimated Glomerular Filt Rate 58; HDL Cholesterol 72 mg/dL (>40); Magnesium 2.1 mg/dL (1.6-2.6); Potassium 4.0 mmol/L (3.3-5.1); Sodium 139 mmol/L (135-145); Total Protein 6.6 g/dL (6.5-8.0); Triglycerides 58 mg/dL (<150)
--- OUTSIDE RECORDS SUMMARY | 2025-04-12 12:33 | XMS_ITS | Encounter Summary ---
Author Organization [facility] Address [address] [place] [address] Phone Care Team Providers Care Arcade Games Mechanic Name Role Phone Umberto Goodwin MD Primary Care Provider + Encounter Details Date Type Department Care Team ([facility] st Contact Info) Description 12/31/2016 Procedure Pass [facility] [address] [place] [address] Social History Tobacco Use Types Packs/Day Years [...] on filedocumented in this encounter Care Teams Arcade Games Mechanic Relationship Specialty Start Date End Date Umberto Goodwin MD [address] [place] [address] PCP - General Internal Medicine 04/06/15 documented as of this encounter Additional Source Comments The information contained in this document represents components of the legal health record. It is not the complete legal health record.[facility]
--- OUTSIDE RECORDS SUMMARY | 2025-04-12 12:34 | XMS_ITS | Encounter Summary ---
Author Organization [facility] Address [address] [place] [address] Phone Care Team Providers Care Shed Boss Name Role Phone Umberto Goodwin MD Primary Care Provider + Encounter Details Date Type Department Care Team ([facility] st Contact Info) Description 02/19/2021 Transcribe Orders [facility] [address] [place] [address] Axel Ross MD [address] [place] [address] [address] [place] [address] [email or web address] Social History Tobacco Use Types Packs/Day Years [...] on filedocumented in this encounter Care Teams Shed Boss Relationship Specialty Start Date End Date Umberto Goodwin MD [address] [address] PCP - General Internal Medicine 04/06/15 documented as of this encounter Additional Source Comments The information contained in this document represents components of the legal health record. It is not the complete legal health record.[facility]
--- OUTSIDE RECORDS SUMMARY | 2025-04-12 12:34 | XMS_ITS | Encounter Summary ---
Author Organization [facility] Address [address] [place] [address] Phone Care Team Providers Care Records Management Specialist Name Role Phone Umberto Goodwin MD Primary Care Provider + Encounter Details Date Type Department Care Team ([facility] st Contact Info) Description 12/30/2018 Procedure Pass [facility] [address] [place] [address] Social History Tobacco Use Types Packs/Day Years [...] on filedocumented in this encounter Care Teams Records Management Specialist Relationship Specialty Start Date End Date Umberto Goodwin MD [address] [place] [address] PCP - General Internal Medicine 04/06/15 documented as of this encounter Additional Source Comments The information contained in this document represents components of the legal health record. It is not the complete legal health record.[facility]
--- OUTSIDE RECORDS SUMMARY | 2025-04-12 12:34 | XMS_ITS | Encounter Summary ---
Author Organization [facility] Address [address] [place] [address] Phone Care Team Providers Care Dbas Name Role Phone Umberto Goodwin MD Primary Care Provider + Encounter Details Date Type Department Care Team ([facility] st Contact Info) Description 01/02/2018 Procedure Pass [facility] [address] [place] [address] Social History Tobacco Use Types Packs/Day Years [...] on filedocumented in this encounter Care Teams Dbas Relationship Specialty Start Date End Date Umberto Goodwin MD [address] [place] [address] PCP - General Internal Medicine 04/06/15 documented as of this encounter Additional Source Comments The information contained in this document represents components of the legal health record. It is not the complete legal health record.[facility]
--- OUTSIDE RECORDS SUMMARY | 2025-04-12 12:34 | XMS_ITS | Clinical Summary ---
Author Organization [facility] Address [address] [place] [address] Phone Care Team Providers Care Packer Insulation Name Role Phone Umberto Goodwin MD Primary [...] high school, GED, job training, learning the [place] language, technical skills, or developing parenting skills)? [...] S S S S S Care Teams Packer Insulation Relationship Specialty Start Date End Date Umberto Goodwin MD [address] [address] PCP - General Internal Medicine 04/06/15 Additional Source Comments The information contained in this document represents components of the legal health record. It is not the complete legal health record.[facility]
--- OUTSIDE RECORDS SUMMARY | 2025-04-12 12:34 | XMS_ITS | Patient Health Record ---
Author Organization [facility] Address [address] [place] [address] Support Name Relationship Address Phone DAVID MOE Guarantor Unknown [phone] Reason For Referral No Information Medications Medication SIG (Take, Route, Frequency, Duration) Notes Start Date End Date Status Ortho Tri-Cyclen (28) 0.035 1 ORAL daily ; Duration: -3 Abimael-MJ 09/23/2011 Active Maxalt 10MG ORAL; Duration: -3 Abimael-MJ 07/26/2011 Active Multivitamins 1 ORAL daily; Durati on: -3 Abimael-MJ 09/23/2011 Active Claritin 10 MG 1 ORAL daily; Durati on: -3 Abimael-MJ 09/23/2011 Active Immunizations Vaccine Route Administration Date Status Comme nts Influenza, live, intranasal Intramuscular 09/23/2011 Pendi ng Tdap Intramuscular 09/23/2011 Pending Problems Problem Type SNOMED Code ICD Code Onset Dates Problem Status W/U Status Risk Notes Problem Menstrual migraine (disorder) (94466313) Menstrual migraine, without mention of intractable migraine without mention of status migrainosus (346.40) Active confirmed Major Problem Migraine (disorder) (45755303) Migraine, unspecified without mention of intractable migraine without mention of status migrainosus (346.90) Active confirmed Diag Problem General examination of patient (458319385) Routine general medical examination at health care facility (V70.0) Active confirmed Diag Plan Of Treatment No Information Insurance Providers Payer Name Payer Address Payer Phone Subscriber Number Group Number Insured Name Patient Relationship to Insured Coverage Start Date Coverage End Date [facility] [address] [place] [address] [id number] DAVID MOE Self - patient is the insured
[2025-04-12 16:30] LABS: Folate 6.0 ng/mL (> or = 4.0); Vitamin B12 412 pg/mL (200-900)
== END 2025-04-12 09:45 | disposition home or self-care (01) ==
LOC: HO.WFDLDS 09:44
PROVIDERS: Visit Provider Physician Assistant
DX: R30.0 Dysuria (principal); M85.80 Other specified disorders of bone density and structure, unspecified site; Z91.89 Other specified personal risk factors, not elsewhere classified; Z80.3 Family history of malignant neoplasm of breast; Z13.29 Encounter for screening for other suspected endocrine disorder; Z13.6 Encounter for screening for cardiovascular disorders
CPT/HCPCS: 36415; 80053; 80061; 81003; 82306; 82607; 82746; 83735; 84443; 85025